=== PATIENT | male | born 1950 | race Caucasian/White ===

== ENCOUNTER 2017-03-15 07:14 | Emergency (ER) | payer MEDICARE ==
[~2017-03-15] VITALS: Ht 182.9 cm; Wt 83.0 kg
[~2017-03-15 07:14] MED LIST: (None)3.5 GM OP; ACTOS15 MG PO; CIPRO XR500 MG PO; CIPROFLOXACN500 MG PO; FENOFIBRATE160 MG OR; FENOFIBRATE160 MG PO; FENOGLIDE40 MG OR; FIRST-VANCOM25 MG/ML PO; FREESTYLE LITE; FREESTYLE LITE XX; FREESTYLELITE100 XX; GENTAMICIN15 ML/BTL OP; GLYBURIDE2.5 MG OR; GLYBURIDE2.5 MG PO; IMODIUM OR; KEFLEX500 MG PO; LOMOTIL2.5 MG PO; LORTAB 5 OR; MECLIZINE25 MG PO; METFORMIN500 M1 OR; METRONIDAZOL500 MG PO; MULTIVITAM10 OR; NAPROXEN500 MG PO; PEPCID20 MG PO; PROZAC20 MG OR; RANITIDINE150 M1 OR; RAPAFLO8 MG OR; TAMSULOSIN0.4 MG PO; [UNRECOGNIZED DRUG - OTHER] PO; [UNRECOGNIZED DRUG - REMARK]
[2017-03-15 07:43] LABS: HEMATOCRIT 48.4 % (39.0-50.0); HEMOGLOBIN 16.6 g/dl (14.0-18.0); IMMATURE GRANULOCYTES 0.1 % (0.0-1.0); MEAN CORPUSCULAR HGB 31.2 pG CALC (26.0-32.0); MEAN CORPUSCULAR HGB CONC 34.3 g/L CALC (32.0-36.0); NEUT# 4.83 thou/uL (1.82-7.42); RED BLOOD COUNT 5.32 mill/uL (4.70-6.10); RED CELL DISTRI WIDTH 12.7 % (11.5-15.5)
[2017-03-15 08:03] LABS: BARBITURATES NEGATIVE (NEGATIVE); COCAINE NEGATIVE (NEGATIVE); METHADONE NEGATIVE (NEGATIVE); OXCYCODONE NEGATIVE (NEGATIVE); TETRAHYDROCANNABIONOL NEGATIVE (NEGATIVE); TRICYLIC ANTIDEPRESSANTS NEGATIVE (NEGATIVE)
[2017-03-15 08:16] LABS: ALBUMIN 4.6 g/dL (3.2-5.0); ALKALINE PHOSPHATASE 50 u/l (38-126); ANION GAP 17 (6-22 (CALC)); BILIRUBIN, TOTAL 0.6 mg/dL (0.0-1.4); BUN 29 mg/dL (8-23); BUN/CREATININE RATIO 31 (12-20 (CALC)); CARBON DIOXIDE 20 mmol/l (22-30); CHLORIDE 107 mmol/l (95-108); CREATININE 0.9 mg/dL (0.7-1.3); ETHYL ALCOHOL 0 mg/dl (0-30); GFR > 60 ML/MIN (>=60 (CALC)); GFR FOR AFR.AMER. > 60 ML/MIN (>=60 (CALC)); GLUCOSE 128 mg/dL (82-115); POTASSIUM 4.3 mmol/l (3.5-5.1); SGOT/AST 26 u/l (19-48); SGPT/ALT 40 u/l (11-66); SODIUM 140 mmol/l (137-146); TOTAL PROTEIN 7.4 g/dL (6.3-8.2)
[2017-03-15 08:28] LABS: MYOGLOBIN 26 ng/mL (0 - 121)
[2017-03-15 09:06] LABS: URINE BILIRUBIN - DIPSTICK NEGATIVE (NEGATIVE); URINE BLOOD DIPSTICK NEGATIVE (NEGATIVE); URINE CLARITY CLEAR; URINE COLOR YELLOW; URINE GLUCOSE - DIPSTICK >=1000 mg/dL (NEGATIVE); URINE KETONE NEGATIVE (NEGATIVE); URINE LEUK ESTERASE NEGATIVE (NEGATIVE); URINE NITRITE - DIPSTICK NEGATIVE (Negative); URINE PH 6.5 (4.5-8.0); URINE PROTEIN - DIPSTICK NEGATIVE (NEG-TRACE); URINE SPECIFIC GRAVITY 1.015; URINE UROBILINOGEN - DIPSTICK 0.2 E.U./dL (0.2)
[2017-03-15 09:33] VITALS: BP 129/65
== END 2017-03-15 09:45 | disposition home or self-care (01) ==
LOC: ED 07:14
PROVIDERS: Emergency Medicine
DX: R55 Syncope and collapse (principal); E11.9 Type 2 diabetes mellitus without complications; G31.9 Degenerative disease of nervous system, unspecified; G11.1 Early-onset cerebellar ataxia; I10 Essential (primary) hypertension; Z85.46 Personal history of malignant neoplasm of prostate; Z92.3 Personal history of irradiation; R94.31 Abnormal electrocardiogram [ECG] [EKG]

== ENCOUNTER 2017-04-19 12:12 | Emergency (ER) | payer MEDICARE ==
[~2017-04-19] VITALS: Ht 182.9 cm; Wt 85.0 kg
[2017-04-19] MEDS ORDERED: CIPROFLOXACN500 MG PO (12:41)
[2017-04-19] MEDS ORDERED: TRAMADOL HYDROC50 MG PO (12:41)
[2017-04-19 14:06] VITALS: BP 131/77
== END 2017-04-19 14:06 | disposition home or self-care (01) ==
LOC: ED 12:12
DX: S91.332A Puncture wound without foreign body, left foot, initial encounter (principal); E11.9 Type 2 diabetes mellitus without complications; G11.1 Early-onset cerebellar ataxia; I10 Essential (primary) hypertension; W22.8XXA Striking against or struck by other objects, initial encounter; Y92.007 Garden or yard of unspecified non-institutional (private) residence as the place of occurrence of the external cause; Z85.46 Personal history of malignant neoplasm of prostate; Z92.3 Personal history of irradiation

== ENCOUNTER 2017-12-10 16:02 | Emergency (ER) | payer MEDICARE ==
[~2017-12-10] VITALS: Ht 182.9 cm; Wt 84.1 kg
[~2017-12-10 16:02] MED LIST changes: +TRAMADOL HYDROC50 MG PO
[2017-12-10 16:54] LABS: URINE BILIRUBIN - DIPSTICK NEGATIVE (NEGATIVE); URINE BLOOD DIPSTICK LARGE (NEGATIVE); URINE GLUCOSE - DIPSTICK >=1000 mg/dL (NEGATIVE); URINE KETONE NEGATIVE (NEGATIVE); URINE LEUK ESTERASE NEGATIVE (NEGATIVE); URINE NITRITE - DIPSTICK NEGATIVE (Negative); URINE PROTEIN - DIPSTICK 30 mg/dL (NEG-TRACE); URINE SPECIFIC GRAVITY 1.015; URINE UROBILINOGEN - DIPSTICK 0.2 E.U./dL (0.2)
[2017-12-10 16:55] LABS: URINE COLOR RED
[2017-12-10 16:56] LABS: URINE CLARITY CLOUDY; URINE RBC TNTC RBC/hpf (0-5); URINE SQUAMOUS EPITHELIAL CELL FEW EPI/hpf (0-FEW)
[2017-12-10] MEDS ORDERED: BACTRIM DS1 TAB PO (17:15)
[2017-12-10 17:32] VITALS: BP 125/88
== END 2017-12-10 18:30 | disposition home or self-care (01) ==
LOC: ED 16:02
PROVIDERS: Emergency Medicine
PROC: 0T9B70Z Drainage of Bladder with Drainage Device, Via Natural or Artificial Opening (ICD-10-PCS; principal; 2017-12-10)
DX: R33.9 Retention of urine, unspecified (principal); N30.41 Irradiation cystitis with hematuria; E11.9 Type 2 diabetes mellitus without complications; G11.1 Early-onset cerebellar ataxia; Y84.2 Radiological procedure and radiotherapy as the cause of abnormal reaction of the patient, or of later complication, without mention of misadventure at the time of the procedure; Z85.46 Personal history of malignant neoplasm of prostate

== ENCOUNTER 2017-12-11 05:24 | Emergency (ER) | payer MEDICARE ==
[~2017-12-11] VITALS: Ht 182.9 cm; Wt 85.6 kg
[~2017-12-11 05:24] MED LIST changes: +BACTRIM DS1 TAB PO
[2017-12-11 09:00] VITALS: BP 143/84
== END 2017-12-11 09:00 | disposition home or self-care (01) ==
LOC: ED 05:24
PROC: 0T2BX0Z Change Drainage Device in Bladder, External Approach (ICD-10-PCS; principal; 2017-12-11)
DX: T83.098A Other mechanical complication of other urinary catheter, initial encounter (principal); E11.9 Type 2 diabetes mellitus without complications; G11.1 Early-onset cerebellar ataxia; Y84.6 Urinary catheterization as the cause of abnormal reaction of the patient, or of later complication, without mention of misadventure at the time of the procedure; Z85.46 Personal history of malignant neoplasm of prostate

== ENCOUNTER 2017-12-14 06:39 | Emergency (ER) | payer MEDICARE ==
[~2017-12-14] VITALS: Ht 182.9 cm; Wt 90.0 kg
[2017-12-14 07:08] VITALS: BP 137/77
== END 2017-12-14 07:10 | disposition home or self-care (01) ==
LOC: ED 06:39
DX: Z46.6 Encounter for fitting and adjustment of urinary device (principal); E11.9 Type 2 diabetes mellitus without complications; G11.1 Early-onset cerebellar ataxia; Z85.46 Personal history of malignant neoplasm of prostate

== ENCOUNTER 2018-02-08 08:13 | Day surgery (SDC) | payer MEDICARE ==
[~2018-02-08 08:13] MED LIST changes: +GLYBURIDE5 M1 PO; +JARDIANCE25 MG PO; +TRILEPTAL300 M1 PO
[2018-02-08 10:36] VITALS: BP 121/71
== END 2018-02-08 10:46 | disposition home or self-care (01) ==
LOC: ENDO 08:13
PROVIDERS: ATTEND Surgery
PROC: 0DJD8ZZ Inspection of Lower Intestinal Tract, Via Natural or Artificial Opening Endoscopic (ICD-10-PCS; principal; 2018-02-08)
DX: Z12.11 Encounter for screening for malignant neoplasm of colon (principal); Q43.8 Other specified congenital malformations of intestine; K57.30 Diverticulosis of large intestine without perforation or abscess without bleeding; E78.5 Hyperlipidemia, unspecified; I10 Essential (primary) hypertension; J45.909 Unspecified asthma, uncomplicated; Z85.46 Personal history of malignant neoplasm of prostate
CPT/HCPCS: G0121

== ENCOUNTER 2018-03-01 14:43 | Emergency (ER) | payer MEDICARE ==
[~2018-03-01] VITALS: Ht 182.9 cm; Wt 90.0 kg
[2018-03-01 15:38] LABS: URINE BILIRUBIN - DIPSTICK NEGATIVE (NEGATIVE); URINE BLOOD DIPSTICK LARGE (NEGATIVE); URINE GLUCOSE - DIPSTICK >=1000 mg/dL (NEGATIVE); URINE KETONE NEGATIVE (NEGATIVE); URINE LEUK ESTERASE NEGATIVE (Negative); URINE NITRITE - DIPSTICK NEGATIVE (Negative); URINE PROTEIN - DIPSTICK TRACE mg/dL (NEG-TRACE); URINE UROBILINOGEN - DIPSTICK 0.2 E.U./dL (0.2)
[2018-03-01 15:39] LABS: URINE CLARITY SL CLOUDY; URINE COLOR AMBER
[2018-03-01 15:44] LABS: URINE RBC >100 RBC/hpf (0-5)
[2018-03-01] MEDS ORDERED: BACTRIM DS1 TAB PO (16:04)
[2018-03-01 16:21] VITALS: BP 124/84
== END 2018-03-01 16:18 | disposition home or self-care (01) ==
LOC: ED 14:43
PROVIDERS: Emergency Medicine
PROC: 0T9B70Z Drainage of Bladder with Drainage Device, Via Natural or Artificial Opening (ICD-10-PCS; principal; 2018-03-01)
DX: R33.9 Retention of urine, unspecified (principal); E11.9 Type 2 diabetes mellitus without complications; G11.1 Early-onset cerebellar ataxia; Z85.46 Personal history of malignant neoplasm of prostate; Z92.3 Personal history of irradiation

== ENCOUNTER 2018-03-03 07:17 | Emergency (ER) | payer MEDICARE ==
[~2018-03-03] VITALS: Ht 182.9 cm; Wt 84.0 kg
[2018-03-03 08:16] VITALS: BP 131/85
== END 2018-03-03 08:17 | disposition home or self-care (01) ==
LOC: ED 07:17
DX: T83.098A Other mechanical complication of other urinary catheter, initial encounter (principal); E11.9 Type 2 diabetes mellitus without complications; G11.1 Early-onset cerebellar ataxia; C61 Malignant neoplasm of prostate; Z92.3 Personal history of irradiation; Y84.6 Urinary catheterization as the cause of abnormal reaction of the patient, or of later complication, without mention of misadventure at the time of the procedure

== ENCOUNTER 2018-03-03 14:05 | Emergency (ER) | payer MEDICARE ==
[~2018-03-03] VITALS: Ht 182.9 cm; Wt 84.0 kg
[2018-03-03 16:25] VITALS: BP 126/75
== END 2018-03-03 16:30 | disposition home or self-care (01) ==
LOC: ED 14:05
PROC: 0T2BX0Z Change Drainage Device in Bladder, External Approach (ICD-10-PCS; principal; 2018-03-03)
DX: T83.098A Other mechanical complication of other urinary catheter, initial encounter (principal); E11.9 Type 2 diabetes mellitus without complications; G11.1 Early-onset cerebellar ataxia; C61 Malignant neoplasm of prostate; Y84.6 Urinary catheterization as the cause of abnormal reaction of the patient, or of later complication, without mention of misadventure at the time of the procedure; Z92.3 Personal history of irradiation

== ENCOUNTER 2018-04-01 13:03 | Emergency (ER) | payer MEDICARE ==
[~2018-04-01] VITALS: Ht 182.9 cm; Wt 84.1 kg
[2018-04-01] MEDS ORDERED: PERCOCET 5/325M1 TAB PO (13:17)
[2018-04-01] MEDS ORDERED: JANUVIA50 MG PO (13:17)
[2018-04-01 13:49] VITALS: BP 144/94
== END 2018-04-01 13:50 | disposition home or self-care (01) ==
LOC: ED 13:03
PROC: 0T9B70Z Drainage of Bladder with Drainage Device, Via Natural or Artificial Opening (ICD-10-PCS; principal; 2018-04-01)
DX: R33.9 Retention of urine, unspecified (principal); Z90.5 Acquired absence of kidney; Z85.528 Personal history of other malignant neoplasm of kidney; R30.0 Dysuria

== ENCOUNTER 2018-12-17 02:33 | Emergency (ER) | payer MEDICARE ==
[~2018-12-17] VITALS: Ht 182.9 cm; Wt 86.0 kg
[~2018-12-17 02:33] MED LIST changes: +JANUVIA50 MG PO; +PERCOCET 5/325M1 TAB PO
[2018-12-17] MEDS ORDERED: TRESIBA FL200 UNIT/M SC (04:28)
[2018-12-17 04:30] VITALS: BP 129/77
== END 2018-12-17 04:36 | disposition home or self-care (01) ==
LOC: ED 02:33
PROC: 0T9B70Z Drainage of Bladder with Drainage Device, Via Natural or Artificial Opening (ICD-10-PCS; principal; 2018-12-17)
DX: T83.038A Leakage of other urinary catheter, initial encounter (principal); Z98.890 Other specified postprocedural states; Z85.46 Personal history of malignant neoplasm of prostate; Z85.51 Personal history of malignant neoplasm of bladder; R33.9 Retention of urine, unspecified; R31.9 Hematuria, unspecified; Z46.6 Encounter for fitting and adjustment of urinary device

== ENCOUNTER 2018-12-17 05:20 | Emergency (ER) | payer MEDICARE ==
[~2018-12-17] VITALS: Ht 182.9 cm; Wt 86.0 kg
[~2018-12-17 05:20] MED LIST changes: +TRESIBA FL200 UNIT/M SC
[2018-12-17 06:05] VITALS: BP 128/91
== END 2018-12-17 06:14 | disposition home or self-care (01) ==
LOC: ED 05:20
DX: T83.038A Leakage of other urinary catheter, initial encounter (principal)

== ENCOUNTER 2018-12-17 10:10 | Emergency (ER) | payer MEDICARE ==
[~2018-12-17] VITALS: Ht 182.9 cm; Wt 86.0 kg
[2018-12-17 10:56] VITALS: BP 127/83
[2018-12-17 11:07] LABS: URINE BILIRUBIN - DIPSTICK SMALL (NEGATIVE); URINE BLOOD DIPSTICK LARGE (NEGATIVE); URINE COLOR DK. YELLOW; URINE GLUCOSE - DIPSTICK NEGATIVE (NEGATIVE); URINE KETONE NEGATIVE (NEGATIVE); URINE LEUK ESTERASE TRACE (NEGATIVE); URINE NITRITE - DIPSTICK NEGATIVE (Negative); URINE PROTEIN - DIPSTICK 100 mg/dL (NEG-TRACE); URINE SPECIFIC GRAVITY 1.025; URINE UROBILINOGEN - DIPSTICK 0.2 E.U./dL (0.2)
[2018-12-17 11:15] LABS: URINE RBC TNTC RBC/hpf (0-5); URINE SQUAMOUS EPITHELIAL CELL FEW EPI/hpf (0-FEW)
== END 2018-12-17 11:20 | disposition home or self-care (01) ==
LOC: ED 10:10
PROVIDERS: Emergency Medicine
PROC: 0T9B70Z Drainage of Bladder with Drainage Device, Via Natural or Artificial Opening (ICD-10-PCS; principal; 2018-12-17)
DX: R33.9 Retention of urine, unspecified (principal); R31.9 Hematuria, unspecified

== ENCOUNTER 2018-12-17 14:50 | Emergency (ER) | payer MEDICARE ==
[~2018-12-17] VITALS: Ht 182.9 cm; Wt 86.0 kg
[2018-12-17 15:13] VITALS: BP 135/77
== END 2018-12-17 15:18 | disposition home or self-care (01) ==
LOC: ED 14:50
DX: Z46.6 Encounter for fitting and adjustment of urinary device (principal)

== ENCOUNTER 2019-03-07 07:15 | Inpatient (IN) | payer MEDICARE ==
[~2019-03-07] VITALS: Ht 182.9 cm; Wt 86.2 kg
[2019-03-07 07:54] LABS: HEMATOCRIT 41.1 % (39.0-50.0); HEMOGLOBIN 13.4 g/dl (14.0-18.0); IMMATURE GRANULOCYTES 0.2 % (0.0-5.0); MEAN CELL VOLUME 94.9 fL CALC (80.0-100.0); MEAN CORPUSCULAR HGB 30.9 pG CALC (26.0-32.0); MEAN CORPUSCULAR HGB CONC 32.6 g/L CALC (32.0-36.0); NEUT# 7.4 thou/uL (1.82-7.42); RED BLOOD COUNT 4.33 mill/uL (4.70-6.10); RED CELL DISTRI WIDTH 12.5 % (11.5-15.5)
[2019-03-07 08:01] LABS: ALBUMIN 3.8 g/dL (3.2-5.0); BILIRUBIN, TOTAL 0.7 mg/dL (0.0-1.4); CREATININE 2.9 mg/dL (0.7-1.3); MAGNESIUM 2.2 mg/dL (1.6-2.3); POTASSIUM 4.2 mmol/l (3.5-5.1); TOTAL PROTEIN 6.9 g/dL (6.3-8.2)
[2019-03-07 09:38] LABS: URINE BILIRUBIN - DIPSTICK NEGATIVE (NEGATIVE); URINE BLOOD DIPSTICK MODERATE (NEGATIVE); URINE COLOR YELLOW; URINE GLUCOSE - DIPSTICK NEGATIVE (NEGATIVE); URINE KETONE NEGATIVE (NEGATIVE); URINE PROTEIN - DIPSTICK 30 mg/dL (NEG-TRACE); URINE SPECIFIC GRAVITY 1.025; URINE UROBILINOGEN - DIPSTICK 0.2 E.U./dL (0.2)
[2019-03-07 09:44] LABS: URINE LEUK ESTERASE SMALL (NEGATIVE); URINE NITRITE - DIPSTICK POSITIVE (Negative)
[2019-03-07 11:25] VITALS: BP 114/71
[2019-03-07 15:10] VITALS: BP 124/74
[2019-03-07 19:35] VITALS: BP 146/81
[2019-03-08 00:04] VITALS: BP 124/75
[2019-03-08 04:20] VITALS: BP 138/87
[2019-03-08 05:07] LABS: HEMATOCRIT 41.1 % (39.0-50.0); HEMOGLOBIN 13.1 g/dl (14.0-18.0); IMMATURE GRANULOCYTES 0.5 % (0.0-5.0); MEAN CELL VOLUME 95.4 fL CALC (80.0-100.0); MEAN CORPUSCULAR HGB 30.4 pG CALC (26.0-32.0); MEAN CORPUSCULAR HGB CONC 31.9 g/L CALC (32.0-36.0); NEUT# 4.96 thou/uL (1.82-7.42); RED BLOOD COUNT 4.31 mill/uL (4.70-6.10); RED CELL DISTRI WIDTH 12.6 % (11.5-15.5)
[2019-03-08 05:31] LABS: ALBUMIN 3.6 g/dL (3.2-5.0); CREATININE 2.5 mg/dL (0.7-1.3); MAGNESIUM 2.2 mg/dL (1.6-2.3); TOTAL PROTEIN 6.6 g/dL (6.3-8.2)
[2019-03-08 05:32] LABS: BILIRUBIN, TOTAL 0.4 mg/dL (0.0-1.4)
[2019-03-08 07:54] VITALS: BP 130/79
[2019-03-08 11:13] VITALS: BP 116/70
[2019-03-08 14:40] VITALS: BP 126/77
[2019-03-08 19:19] VITALS: BP 135/71
[2019-03-09 00:14] VITALS: BP 136/90
[2019-03-09 03:45] LABS: HEMOGLOBIN 11.3 g/dl (14.0-18.0); IMMATURE GRANULOCYTES 0.3 % (0.0-5.0); MEAN CELL VOLUME 93.7 fL CALC (80.0-100.0); MEAN CORPUSCULAR HGB CONC 33.1 g/L CALC (32.0-36.0); NEUT# 4.19 thou/uL (1.82-7.42); RED BLOOD COUNT 3.64 mill/uL (4.70-6.10); RED CELL DISTRI WIDTH 12.5 % (11.5-15.5)
[2019-03-09 03:51] LABS: HEMATOCRIT 34.1 % (39.0-50.0)
[2019-03-09 04:07] LABS: ALBUMIN 3.1 g/dL (3.2-5.0); BILIRUBIN, TOTAL 0.4 mg/dL (0.0-1.4); CREATININE 2.1 mg/dL (0.7-1.3); MAGNESIUM 1.9 mg/dL (1.6-2.3); TOTAL PROTEIN 5.9 g/dL (6.3-8.2)
[2019-03-09 04:45] VITALS: BP 135/84
[2019-03-09 07:30] VITALS: BP 137/88
[2019-03-09 16:00] VITALS: BP 128/82
[2019-03-09 19:00] VITALS: BP 153/80
[2019-03-10 04:22] VITALS: BP 132/82
[2019-03-10 06:42] LABS: AMYLASE 89 u/l (30-110); LIPASE 400 u/l (23-300)
[2019-03-10 09:14] VITALS: BP 123/79
[2019-03-10 10:32] LABS: HEMATOCRIT 36.2 % (39.0-50.0); HEMOGLOBIN 11.6 g/dl (14.0-18.0); IMMATURE GRANULOCYTES 0.2 % (0.0-5.0); MEAN CELL VOLUME 95.3 fL CALC (80.0-100.0); MEAN CORPUSCULAR HGB 30.5 pG CALC (26.0-32.0); NEUT# 2.64 thou/uL (1.82-7.42); RED BLOOD COUNT 3.8 mill/uL (4.70-6.10); RED CELL DISTRI WIDTH 12.6 % (11.5-15.5)
[2019-03-10 10:54] LABS: CREATININE 1.7 mg/dL (0.7-1.3); POTASSIUM 4.4 mmol/l (3.5-5.1)
[2019-03-10 14:50] VITALS: BP 116/73
[2019-03-10 19:16] VITALS: BP 134/81
[2019-03-11 04:25] VITALS: BP 132/79
[2019-03-11 05:01] LABS: HEMATOCRIT 36.2 % (39.0-50.0); HEMOGLOBIN 11.8 g/dl (14.0-18.0); IMMATURE GRANULOCYTES 0.6 % (0.0-5.0); MEAN CELL VOLUME 93.8 fL CALC (80.0-100.0); MEAN CORPUSCULAR HGB 30.6 pG CALC (26.0-32.0); MEAN CORPUSCULAR HGB CONC 32.6 g/L CALC (32.0-36.0); NEUT# 3.37 thou/uL (1.82-7.42); RED BLOOD COUNT 3.86 mill/uL (4.70-6.10); RED CELL DISTRI WIDTH 12.3 % (11.5-15.5)
[2019-03-11 05:13] LABS: CREATININE 1.8 mg/dL (0.7-1.3); MAGNESIUM 1.9 mg/dL (1.6-2.3); POTASSIUM 4.3 mmol/l (3.5-5.1)
[2019-03-11 07:31] VITALS: BP 125/79
[2019-03-11] MEDS ORDERED: KEFLEX500 MG PO (12:19)
== END 2019-03-11 13:40 | disposition home or self-care (01) | DRG 872 ==
LOC: ED 07:15 → ED-I 10:08 → ED 10:15 → MS2 10:16
PROVIDERS: Family Medicine; Nurse Practitioner Family; ADMIT Internal Medicine Nephrology; ATTEND Internal Medicine Nephrology
DX: A41.9 Sepsis, unspecified organism (principal); N39.0 Urinary tract infection, site not specified; G11.1 Early-onset cerebellar ataxia; N17.9 Acute kidney failure, unspecified; E11.22 Type 2 diabetes mellitus with diabetic chronic kidney disease; I12.9 Hypertensive chronic kidney disease with stage 1 through stage 4 chronic kidney disease, or unspecified chronic kidney disease; N18.3 Chronic kidney disease, stage 3 (moderate); E86.9 Volume depletion, unspecified; D64.9 Anemia, unspecified; E78.5 Hyperlipidemia, unspecified; N28.89 Other specified disorders of kidney and ureter; G40.909 Epilepsy, unspecified, not intractable, without status epilepticus; B96.20 Unspecified Escherichia coli [E. coli] as the cause of diseases classified elsewhere; Z85.528 Personal history of other malignant neoplasm of kidney; Z90.5 Acquired absence of kidney; Z79.4 Long term (current) use of insulin; Z85.46 Personal history of malignant neoplasm of prostate

== ENCOUNTER 2020-07-01 11:07 | Emergency (ER) | payer MEDICARE, OTHER ==
[~2020-07-01] VITALS: Ht 182.9 cm; Wt 70.0 kg
[~2020-07-01 11:07] MED LIST changes: +Levaquin PO; +MULTIVITAMI9 PO
[2020-07-01] MEDS ORDERED: NITROFURANTN100 MG PO (11:52)
[2020-07-01] MEDS ORDERED: CLEOCIN300 MG PO (12:22)
[2020-07-01 12:28] VITALS: BP 176/63
== END 2020-07-01 12:33 | disposition home or self-care (01) ==
LOC: ED 11:07
DX: K11.8 Other diseases of salivary glands (principal); E11.9 Type 2 diabetes mellitus without complications; F31.9 Bipolar disorder, unspecified; G11.11 Friedreich ataxia; Z79.4 Long term (current) use of insulin

== ENCOUNTER 2020-07-15 00:58 | Emergency (ER) | payer MEDICARE, OTHER ==
[~2020-07-15] VITALS: Ht 182.9 cm; Wt 86.0 kg
[~2020-07-15 00:58] MED LIST changes: +CLEOCIN300 MG PO; +NITROFURANTN100 MG PO
[2020-07-15 02:36] LABS: URINE BILIRUBIN - DIPSTICK NEGATIVE (NEGATIVE); URINE BLOOD DIPSTICK MODERATE (NEGATIVE); URINE COLOR YELLOW; URINE GLUCOSE - DIPSTICK 100 mg/dL (NEGATIVE); URINE KETONE NEGATIVE (NEGATIVE); URINE PH 5.5 (4.5-8.0); URINE PROTEIN - DIPSTICK TRACE mg/dL (NEG-TRACE); URINE SPECIFIC GRAVITY 1.025; URINE UROBILINOGEN - DIPSTICK 0.2 E.U./dL (0.2)
[2020-07-15 02:45] LABS: URINE LEUK ESTERASE MODERATE (NEGATIVE); URINE NITRITE - DIPSTICK NEGATIVE (Negative)
[2020-07-15 02:46] LABS: URINE BACTERIA MANY hpf; URINE EPITHELIAL CELLS MODERATE EPI/hpf (0-FEW); URINE WBC 50-100 WBC/hpf (0-5)
[2020-07-15] MEDS ORDERED: CIPROFLOXACN500 MG PO (02:54)
[2020-07-15 04:00] VITALS: BP 128/77
== END 2020-07-15 04:30 | disposition home or self-care (01) ==
LOC: ED 00:58
DX: R33.9 Retention of urine, unspecified (principal); N39.0 Urinary tract infection, site not specified; E11.9 Type 2 diabetes mellitus without complications; G11.11 Friedreich ataxia; B96.20 Unspecified Escherichia coli [E. coli] as the cause of diseases classified elsewhere; Z96.0 Presence of urogenital implants; Z85.46 Personal history of malignant neoplasm of prostate; Z85.528 Personal history of other malignant neoplasm of kidney; Z79.4 Long term (current) use of insulin; Z87.440 Personal history of urinary (tract) infections; Z79.2 Long term (current) use of antibiotics

== ENCOUNTER 2020-07-27 10:40 | Emergency (ER) | payer MEDICARE, OTHER ==
[~2020-07-27] VITALS: Ht 182.9 cm; Wt 76.8 kg
[2020-07-27] MEDS ORDERED: TOLTERODINE TART2 MG PO (11:12)
[2020-07-27] MEDS ORDERED: CIPROFLOXACN500 MG PO (11:13)
[2020-07-27 12:14] VITALS: BP 134/75
== END 2020-07-27 12:22 | disposition home or self-care (01) ==
LOC: ED 10:40
DX: T83.031A Leakage of indwelling urethral catheter, initial encounter (principal); E11.9 Type 2 diabetes mellitus without complications; G11.11 Friedreich ataxia; F31.9 Bipolar disorder, unspecified; Y84.6 Urinary catheterization as the cause of abnormal reaction of the patient, or of later complication, without mention of misadventure at the time of the procedure; Z87.440 Personal history of urinary (tract) infections; Z79.4 Long term (current) use of insulin; Z85.46 Personal history of malignant neoplasm of prostate; Z96.0 Presence of urogenital implants; Z85.528 Personal history of other malignant neoplasm of kidney

== ENCOUNTER 2022-09-12 09:12 | Emergency (ER) | payer MEDICARE, OTHER ==
[~2022-09-12] VITALS: Ht 182.9 cm; Wt 76.6 kg
[~2022-09-12 09:12] MED LIST changes: +TOLTERODINE TART2 MG PO
[2022-09-12 09:23] VITALS: BP 136/87
[2022-09-12 09:31] VITALS: BP 150/82
[2022-09-12 09:45] VITALS: BP 121/80
[2022-09-12 09:48] LABS: URINE BILIRUBIN - DIPSTICK NEGATIVE (NEGATIVE); URINE BLOOD DIPSTICK SMALL (NEGATIVE); URINE COLOR YELLOW; URINE GLUCOSE - DIPSTICK 250 mg/dL (NEGATIVE); URINE KETONE NEGATIVE (NEGATIVE); URINE LEUK ESTERASE NEGATIVE (NEGATIVE); URINE PH 5.5 (4.5-8.0); URINE PROTEIN - DIPSTICK NEGATIVE (NEG-TRACE); URINE SPECIFIC GRAVITY >=1.030; URINE UROBILINOGEN - DIPSTICK 0.2 E.U./dL (0.2)
[2022-09-12 09:48] LABS: BASO% 0.2 % (0-3); EOS% 0.5 % (0-8); HEMATOCRIT 45.6 % (39.0-50.0); HEMOGLOBIN 15.6 g/dl (14.0-18.0); IMMATURE GRANULOCYTES 0.2 % (0.0-5.0); LYMPH% 13.2 % (15-41); MEAN CELL VOLUME 93.3 fL CALC (80.0-100.0); MEAN CORPUSCULAR HGB 31.9 pG CALC (26.0-32.0); MEAN CORPUSCULAR HGB CONC 34.2 g/dL CAL (32.0-36.0); MONO% 6.6 % (2-13); NEUT# 9.64 thou/uL (1.82-7.42); NEUT% 79.3 % (42-76); RED BLOOD COUNT 4.89 mill/uL (4.70-6.10); RED CELL DISTRI WIDTH 12.8 % (11.5-15.5)
[2022-09-12 09:50] LABS: URINE NITRITE - DIPSTICK NEGATIVE (Negative); URINE RBC 0-2 RBC/hpf (0-5)
[2022-09-12 09:51] LABS: URINE WBC 0-2 WBC/hpf (0-5)
[2022-09-12 10:00] VITALS: BP 116/75
[2022-09-12 10:00] LABS: ALBUMIN 4.5 g/dL (3.2-5.0); BILIRUBIN, TOTAL 0.5 mg/dL (0.0-1.4); CREATININE 1.5 mg/dL (0.7-1.3); POTASSIUM 4.2 mmol/l (3.5-5.1); TOTAL PROTEIN 7.6 g/dL (6.3-8.2)
[2022-09-12] MEDS ORDERED: OMNI-PAC300 MG PO (10:13)
[2022-09-12 10:15] VITALS: BP 126/79
[2022-09-12 10:26] VITALS: BP 126/79
[2022-09-12] MEDS ORDERED: TRAZODONE100 MG PO (10:32)
== END 2022-09-12 10:37 | disposition home or self-care (01) ==
LOC: ED 09:12
PROVIDERS: Family Medicine
DX: R53.83 Other fatigue (principal); R31.9 Hematuria, unspecified; E11.9 Type 2 diabetes mellitus without complications; G11.11 Friedreich ataxia; F31.9 Bipolar disorder, unspecified; Z87.440 Personal history of urinary (tract) infections; Z85.46 Personal history of malignant neoplasm of prostate; Z85.528 Personal history of other malignant neoplasm of kidney; Z79.4 Long term (current) use of insulin; Z85.118 Personal history of other malignant neoplasm of bronchus and lung

== ENCOUNTER 2023-01-12 06:00 | Emergency (ER) | payer MEDICARE, OTHER ==
[~2023-01-12] VITALS: Ht 182.9 cm; Wt 74.0 kg
[~2023-01-12 06:00] MED LIST changes: +OMNI-PAC300 MG PO; +TRAZODONE100 MG PO
[2023-01-12] MEDS ORDERED: GLYBURIDE5 M1 PO (06:30)
[2023-01-12 06:50] VITALS: BP 114/74
== END 2023-01-12 06:50 | disposition home or self-care (01) ==
LOC: ED 06:00
DX: Z03.823 Encounter for observation for suspected inserted (injected) foreign body ruled out (principal); E11.9 Type 2 diabetes mellitus without complications; G11.11 Friedreich ataxia; F31.9 Bipolar disorder, unspecified; Z87.440 Personal history of urinary (tract) infections; Z85.46 Personal history of malignant neoplasm of prostate; Z85.528 Personal history of other malignant neoplasm of kidney; Z79.4 Long term (current) use of insulin

== ENCOUNTER 2024-04-11 18:13 | Emergency (ER) | payer MEDICARE, OTHER ==
[~2024-04-11] VITALS: Ht 182.9 cm; Wt 73.9 kg
[2024-04-11] VITALS (16 sets, daily range): BP systolic 116–151; BP diastolic 77–90
[2024-04-11] MEDS ORDERED: DIATRIZOATE MEGLUMINE & SODIUM 30 ML/BTL BTL PO SCH (19:20)
[2024-04-11] MEDS ORDERED: SODIUM CHLORIDE 0.9% 1,000 ML IV ONE (19:25)
[2024-04-11 19:41] LABS: BASO% 0.4 % (0-3); EOS% 2.8 % (0-8); HEMATOCRIT 43.1 % (39.0-50.0); HEMOGLOBIN 14.5 g/dl (14.0-18.0); IMMATURE GRANULOCYTES 0.1 % (0.0-5.0); MEAN CELL VOLUME 93.7 fL CALC (80.0-100.0); MEAN CORPUSCULAR HGB 31.5 pG CALC (26.0-32.0); MEAN CORPUSCULAR HGB CONC 33.6 g/dL CAL (32.0-36.0); MONO% 7.9 % (2-13); NEUT# 4.85 thou/uL (1.82-7.42); NEUT% 70.8 % (42-76); RED BLOOD COUNT 4.6 mill/uL (4.70-6.10); RED CELL DISTRI WIDTH 12.3 % (11.5-15.5)
[2024-04-11 19:58] LABS: ALBUMIN 4.1 g/dL (3.2-5.0); ALKALINE PHOSPHATASE 53 u/l (38-126); ANION GAP 11 (6-22 (CALC)); BILIRUBIN, TOTAL 0.4 mg/dL (0.2-1.3); BUN 31 mg/dL (8-23); BUN/CREATININE RATIO 19 (12-20 (CALC)); CARBON DIOXIDE 25 mmol/l (22-30); CHLORIDE 107 mmol/l (95-108); CREATININE 1.6 mg/dL (0.7-1.3); ESTIMATED GFR 45 ML/MIN (>=90 (CALC)); LIPASE 130 u/l (23-300); POTASSIUM 4.3 mmol/l (3.5-5.1); SGOT/AST 27 u/l (19-48); SODIUM 139 mmol/l (137-146); TOTAL PROTEIN 7.1 g/dL (6.3-8.2)
[2024-04-11] MEDS ORDERED: DIATRIZOATE MEGLUMINE & SODIUM 30 ML/BTL BTL PO ONE (20:00)
[2024-04-12] VITALS: BP 131/80
[2024-04-12 00:30] VITALS: BP 144/89
[2024-04-12 01:00] VITALS: BP 139/85
[2024-04-12 01:30] VITALS: BP 144/89
[2024-04-12 02:05] VITALS: BP 144/89
== END 2024-04-12 02:05 | disposition home or self-care (01) ==
LOC: ED 18:13
PROVIDERS: Internal Medicine
DX: K59.00 Constipation, unspecified (principal); K80.20 Calculus of gallbladder without cholecystitis without obstruction; E11.9 Type 2 diabetes mellitus without complications; F31.9 Bipolar disorder, unspecified; Z79.4 Long term (current) use of insulin; Z87.440 Personal history of urinary (tract) infections; Z79.84 Long term (current) use of oral hypoglycemic drugs; G11.11 Friedreich ataxia; Z85.528 Personal history of other malignant neoplasm of kidney; Z85.46 Personal history of malignant neoplasm of prostate